=== PATIENT | female | born 1945 | race Caucasian/White ===

== ENCOUNTER → 2019-06-13 | Outpatient (CLI) | payer MEDICARE ==
[~2019-06-13] MED LIST: GADOTERATE 7.5 MMOL/15 ML SYR ONE
== END | disposition home or self-care (01) ==
LOC: RAD 12:24
PROVIDERS: ATTEND Internal Medicine Hematology & Oncology
DX: K44.9 Diaphragmatic hernia without obstruction or gangrene (principal); R91.1 Solitary pulmonary nodule; C24.0 Malignant neoplasm of extrahepatic bile duct; G31.9 Degenerative disease of nervous system, unspecified; Z85.840 Personal history of malignant neoplasm of eye
CPT/HCPCS: 70553; 78816; A9552; A9575

== ENCOUNTER → 2019-11-18 | Outpatient (CLI) | payer MEDICARE ==
[~2019-11-18] MED LIST changes: -GADOTERATE 7.5 MMOL/15 ML SYR ONE; +GADOXETATE DISODIUM 2.5 MMOL/10 ML ONE; +OMNIPAQUE 350 MG/ML, 100ML BOTTLE ONE
== END | disposition home or self-care (01) ==
LOC: CFH 12:10
PROVIDERS: ATTEND Internal Medicine Medical Oncology
DX: C78.7 Secondary malignant neoplasm of liver and intrahepatic bile duct (principal); K46.9 Unspecified abdominal hernia without obstruction or gangrene; R91.8 Other nonspecific abnormal finding of lung field; R16.1 Splenomegaly, not elsewhere classified
CPT/HCPCS: 71260; 72193; 74183; A9581; Q9967

== ENCOUNTER → 2020-02-23 | Outpatient (CLI) | payer MEDICARE | END | disposition home or self-care (01) | LOC: CFH 08:26 | PROVIDERS: ATTEND Internal Medicine Medical Oncology | DX: C77.9 Secondary and unspecified malignant neoplasm of lymph node, unspecified (principal); R91.8 Other nonspecific abnormal finding of lung field; M51.36 Other intervertebral disc degeneration, lumbar region; K76.9 Liver disease, unspecified | CPT/HCPCS: 71260; 72193; 74183; A9581; Q9967 ==

== ENCOUNTER → 2020-04-23 | Outpatient (CLI) | payer MEDICARE | END | disposition home or self-care (01) | LOC: CFH 09:50 → EDSTATUS 10:15 | PROVIDERS: ATTEND Internal Medicine Medical Oncology | DX: C77.9 Secondary and unspecified malignant neoplasm of lymph node, unspecified (principal); K46.9 Unspecified abdominal hernia without obstruction or gangrene; R91.8 Other nonspecific abnormal finding of lung field; R16.0 Hepatomegaly, not elsewhere classified; N28.1 Cyst of kidney, acquired; Z90.49 Acquired absence of other specified parts of digestive tract | CPT/HCPCS: 71260; 72193; 74183; A9581; Q9967 ==

== ENCOUNTER → 2020-06-14 | Outpatient (CLI) | payer MEDICARE | END | disposition home or self-care (01) | LOC: CFH 12:56 | PROVIDERS: ATTEND Internal Medicine Medical Oncology | DX: C77.9 Secondary and unspecified malignant neoplasm of lymph node, unspecified (principal); R91.8 Other nonspecific abnormal finding of lung field; K46.9 Unspecified abdominal hernia without obstruction or gangrene; M51.36 Other intervertebral disc degeneration, lumbar region; M41.86 Other forms of scoliosis, lumbar region | CPT/HCPCS: 71260; 72193; 74183; A9581; Q9967 ==

== ENCOUNTER 2020-08-21 10:18 | Outpatient (CLI) | payer MEDICARE ==
[2020-08-21] MEDS ORDERED: GADOXETATE DISODIUM 2.5 MMOL/10 ML ONE (12:14)
[2020-08-21] MEDS ORDERED: OMNIPAQUE 350 MG/ML, 100ML BOTTLE ONE (16:05)
== END 2020-08-21 23:59 | disposition home or self-care (01) ==
LOC: CFH 10:18
PROVIDERS: ATTEND Internal Medicine Medical Oncology
DX: C69.41 Malignant neoplasm of right ciliary body (principal); C77.9 Secondary and unspecified malignant neoplasm of lymph node, unspecified; K46.9 Unspecified abdominal hernia without obstruction or gangrene; M51.36 Other intervertebral disc degeneration, lumbar region; K76.9 Liver disease, unspecified; R91.8 Other nonspecific abnormal finding of lung field; I70.0 Atherosclerosis of aorta
CPT/HCPCS: 71260; 72193; 74183; A9581; Q9967

== ENCOUNTER → 2020-11-26 | Outpatient (CLI) | payer MEDICARE | END | disposition home or self-care (01) | LOC: CFH 12:53 | PROVIDERS: ATTEND Internal Medicine Medical Oncology | DX: C77.9 Secondary and unspecified malignant neoplasm of lymph node, unspecified (principal); K76.89 Other specified diseases of liver; M47.816 Spondylosis without myelopathy or radiculopathy, lumbar region; R91.8 Other nonspecific abnormal finding of lung field | CPT/HCPCS: 71260; 72193; 74183; 82565; A9581; Q9967 ==

== ENCOUNTER → 2021-02-28 | Outpatient (CLI) | payer MEDICARE | END | disposition home or self-care (01) | LOC: CFH 11:44 | PROVIDERS: ATTEND Internal Medicine Medical Oncology | DX: C78.02 Secondary malignant neoplasm of left lung (principal); C77.9 Secondary and unspecified malignant neoplasm of lymph node, unspecified; R91.8 Other nonspecific abnormal finding of lung field; K76.0 Fatty (change of) liver, not elsewhere classified; N28.1 Cyst of kidney, acquired; M51.34 Other intervertebral disc degeneration, thoracic region | CPT/HCPCS: 71260; 72193; 74183; A9581; Q9967 ==